=== PATIENT | male | born 1955 | race Two or more races ===

== ENCOUNTER 2021-09-08 06:00 | Day surgery (SDC) | payer OTHER ==
[~2021-09-08 06:00] MED LIST: ALBUTERO IH; SINGULAIR10 MG PO
[2021-09-08] MEDS ORDERED: ULTRAM50 MG PO (15:10)
== END 2021-09-08 16:00 | disposition home or self-care (01) ==
LOC: CIR.AMB 06:00
PROVIDERS: ATTEND Surgery
DX: C20 Malignant neoplasm of rectum (principal); K62.89 Other specified diseases of anus and rectum; K62.5 Hemorrhage of anus and rectum
CPT/HCPCS: 36561; 77001; C1788

== ENCOUNTER → 2024-02-04 10:44 | Outpatient (CLI) | payer OTHER ==
[~2024-02-04 10:44] MED LIST changes: +BREO ELLIPTA 21 EACH IH; +ULTRAM50 MG PO
== END | disposition home or self-care (01) ==
LOC: LAB 10:44 → EKG 10:44
PROVIDERS: ATTEND Surgery
DX: I10 Essential (primary) hypertension (principal); Z01.810 Encounter for preprocedural cardiovascular examination; C20 Malignant neoplasm of rectum; K62.89 Other specified diseases of anus and rectum; K62.5 Hemorrhage of anus and rectum; R59.0 Localized enlarged lymph nodes

== ENCOUNTER 2024-02-11 12:00 | Inpatient (IN) | payer OTHER ==
[~2024-02-11] VITALS: Ht 165.1 cm; Wt 54.4 kg
[2024-02-15] MEDS ORDERED: CEFTRIAXONE SODIUM 2,000 MG VIAL IV ONE (08:30)
[2024-02-15] MEDS ORDERED: METRONIDAZOLE/SODIUM CHLORIDE 500 MG/100 ML PIGGYBACK IV ONE (08:30)
[2024-02-15] MEDS ORDERED: OxyCODONE HCL 5 MG TABLET (ROXICODONE) PO PRN (10:45)
[2024-02-15] MEDS ORDERED: ONDANSETRON HCL 2 MG/ML VIAL IV PRN (10:45)
[2024-02-15] MEDS ORDERED: RINGERS SOLUTION,LACTATED 1,000 ML IV SCH (10:45)
[2024-02-15] MEDS ORDERED: MORPHINE SULFATE 4 MG/ML CARTRIDGE IV PRN (10:45)
[2024-02-15] MEDS ORDERED: SUGAMMADEX SODIUM 200 MG/2 ML VIAL IV ONE (11:15)
[2024-02-15] MEDS ORDERED: MORPHINE SULFATE 4 MG/ML VIAL IV ONE ×2 (11:50→12:20)
[2024-02-15] MEDS ORDERED: ACETAMINOPHEN 500 MG GEL..CAP PO SCH (12:00)
[2024-02-15] MEDS ORDERED: METRONIDAZOLE/SODIUM CHLORIDE 500 MG/100 ML PIGGYBACK IV SCH (13:00)
[2024-02-15 16:19] VITALS: BP 134/63; O2SAT 95
[2024-02-15] MEDS ORDERED: LACTOBACILLUS ACIDOPHILUS 1 CAP CAP PO SCH (17:00)
[2024-02-15] MEDS ORDERED: GABAPENTIN 300 MG CAPSULE PO SCH (17:00)
[2024-02-15] MEDS ORDERED: HYOSCYAMINE SULFATE 0.125 MG TAB.SUBL SL SCH (17:00)
[2024-02-15] MEDS ORDERED: CIPROFLOXACIN IN 5 % DEXTROSE 400 MG/200 ML PIGGYBAG IV SCH (17:00)
[2024-02-15] MEDS ORDERED: TAMSULOSIN HCL 0.4 MG CAP PO SCH (17:00)
[2024-02-15] MEDS ORDERED: ALBUTEROL SULFATE 3 ML/2.5 MG AMPUL.NEB IH SCH (18:36)
[2024-02-15] MEDS ORDERED: FAMOTIDINE/PF 20 MG/2 ML VIAL IV PUSH SCH (21:00)
[2024-02-16 01:18] VITALS: BP 141/67; O2SAT 99
[2024-02-16 08:00] VITALS: BP 81/50; BP 84/44; O2SAT 97; O2SAT 98
[2024-02-16 09:21] LABS: HEMATOCRIT 32.5 % (39.0-48.0); HEMOGLOBIN 10.9 g/dL (13-16.00); MEAN CELL VOLUME 81.7 fL (80.0-100.00); MEAN CORPUSCULAR HEMOGLOBIN 27.5 pg (27.00-32.0); MEAN CORPUSCULAR HGB CONC 33.7 g/dl (32.0-36.0); PLATELET COUNT 291 K/uL (150-450); RED BLOOD COUNT 3.98 M/uL (4.00-6.00); RED CELL DISTRIBUTION WIDTH 14.7 % (11.5-14.5)
[2024-02-16 09:51] LABS: ALBUMIN 2.3 gm/dL (3.4-5.0); CREATININE SERUM 0.93 mg/dL (0.70-1.30); GFR 80.56; MAGNESIUM 1.7 mg/dL (1.8-2.4); PHOSPHOROUS 3.1 mg/dL (2.5-4.9); POTASSIUM 4.95 mEq/L (3.5-5.1)
[2024-02-16 10:00] VITALS: BP 84/44; O2SAT 98
[2024-02-16 11:00] VITALS: BP 106/54; O2SAT 98
[2024-02-16] MEDS ORDERED: DEXTROSE 50 % IN WATER 0.5 G/ML DISP.SYRIN IV PRN (14:00)
[2024-02-16] MEDS ORDERED: INSULIN LISPRO 1,000 UNIT/10 ML UNITS SUBCUTANEO PRN (14:00)
[2024-02-16] MEDS ORDERED: MAGNESIUM SULFATE IN WATER 50 ML IV NR (16:00)
[2024-02-16] MEDS ORDERED: SOD FERRIC GLUC COMPLX/SUCROSE 62.5 MG in 0.9 % SODIUM CHLORIDE 50 ML IV SCH (17:00)
[2024-02-16] MEDS ORDERED: ENOXAPARIN SODIUM 40 MG/0.4 ML SYRINGE SUBCUTANEO SCH (17:00)
[2024-02-16 19:02] VITALS: BP 114/58; O2SAT 95
[2024-02-17 00:55] VITALS: BP 91/54; O2SAT 96
[2024-02-17 08:00] VITALS: BP 116/67; O2SAT 95
[2024-02-17] MEDS ORDERED: ENOXAPARIN SODIUM 40 MG/0.4 ML SYRINGE SUBCUTANEO SCH (09:00)
[2024-02-17 09:21] LABS: HEMATOCRIT 31.7 % (39.0-48.0); HEMOGLOBIN 10.6 g/dL (13-16.00); MEAN CELL VOLUME 81.2 fL (80.0-100.00); MEAN CORPUSCULAR HGB CONC 33.3 g/dl (32.0-36.0); PLATELET COUNT 274 K/uL (150-450); RED BLOOD COUNT 3.91 M/uL (4.00-6.00); RED CELL DISTRIBUTION WIDTH 14.8 % (11.5-14.5)
[2024-02-17 12:00] VITALS: BP 100/62; O2SAT 95
[2024-02-17 16:00] VITALS: BP 137/68; O2SAT 100
[2024-02-18 00:51] VITALS: BP 134/56; O2SAT 97
[2024-02-18 08:35] VITALS: BP 163/78; O2SAT 95
[2024-02-18] MEDS ORDERED: PIPERACILLIN/TAZOBACTAM SODIUM 3.375 GM in 0.9 % SODIUM CHLORIDE 100 ML IV SCH (12:00)
[2024-02-18 12:44] LABS: HEMATOCRIT 35.3 % (39.0-48.0); HEMOGLOBIN 11.3 g/dL (13-16.00); MEAN CELL VOLUME 82.2 fL (80.0-100.00); MEAN CORPUSCULAR HEMOGLOBIN 26.3 pg (27.00-32.0); PLATELET COUNT 328 K/uL (150-450); RED BLOOD COUNT 4.29 M/uL (4.00-6.00); RED CELL DISTRIBUTION WIDTH 14.6 % (11.5-14.5)
[2024-02-18 13:40] LABS: ALBUMIN 2.4 gm/dL (3.4-5.0); BILIRUBIN TOTAL 0.47 mg/dL (0.3-1.2); CALCIUM 8.6 mg/dL (8.5-10.1); CREATININE SERUM 0.85 mg/dL (0.70-1.30); GFR 89.37; GLOBULINA 3.5 G/DL (2.4-3.5); MAGNESIUM 1.9 mg/dL (1.8-2.4); POTASSIUM 4.22 mEq/L (3.5-5.1); TOTAL PROTEIN 5.9 gm/dL (6.4-8.2)
[2024-02-18 16:00] VITALS: BP 152/72; O2SAT 97
[2024-02-19] VITALS: BP 127/83; O2SAT 96
[2024-02-19 09:38] VITALS: BP 135/65; O2SAT 97
[2024-02-19 17:03] VITALS: BP 121/79; O2SAT 96
[2024-02-20] VITALS: BP 122/69; O2SAT 97
[2024-02-20 06:26] LABS: HEMATOCRIT 32.3 % (39.0-48.0); HEMOGLOBIN 10.6 g/dL (13-16.00); MEAN CELL VOLUME 81.5 fL (80.0-100.00); MEAN CORPUSCULAR HEMOGLOBIN 26.6 pg (27.00-32.0); MEAN CORPUSCULAR HGB CONC 32.7 g/dl (32.0-36.0); PLATELET COUNT 374 K/uL (150-450); RED BLOOD COUNT 3.97 M/uL (4.00-6.00); RED CELL DISTRIBUTION WIDTH 14.8 % (11.5-14.5)
[2024-02-20 07:01] LABS: ALBUMIN 2.1 gm/dL (3.4-5.0); BILIRUBIN TOTAL 0.42 mg/dL (0.3-1.2); CALCIUM 8.3 mg/dL (8.5-10.1); CREATININE SERUM 0.63 mg/dL (0.70-1.30); GFR 126.27; GLOBULINA 3.2 G/DL (2.4-3.5); POTASSIUM 3.77 mEq/L (3.5-5.1); TOTAL PROTEIN 5.3 gm/dL (6.4-8.2)
[2024-02-20 08:00] VITALS: BP 123/72; O2SAT 95
[2024-02-20 16:00] VITALS: BP 126/59; O2SAT 95
[2024-02-21] VITALS: BP 118/63; O2SAT 95
[2024-02-21 09:00] VITALS: BP 133/61; O2SAT 98
[2024-02-21 16:33] VITALS: BP 129/71; O2SAT 99
[2024-02-22 00:15] VITALS: BP 137/69; BP 142/67; O2SAT 99
[2024-02-22] MEDS ORDERED: KETOROLAC TROMETHAMINE 30 MG VIAL IV ONE (09:00)
[2024-02-22] MEDS ORDERED: ENOXAPARIN SODIUM 40 MG/0.4 ML SYRINGE SUBCUTANEO SCH (17:00)
[2024-02-22 17:04] VITALS: BP 130/68; O2SAT 99
[2024-02-22] MEDS ORDERED: APIXABAN 5 MG TABLET PO SCH (21:00)
[2024-02-23 01:37] VITALS: BP 147/71; O2SAT 98
[2024-02-23 08:00] VITALS: BP 136/90; O2SAT 97
[2024-02-23 16:58] VITALS: BP 135/82; O2SAT 97
[2024-02-24 00:48] VITALS: BP 127/65; O2SAT 96
[2024-02-24] MEDS ORDERED: METRONIDAZOLE/SODIUM CHLORIDE 100 ML IV SCH (01:00)
[2024-02-24 08:00] VITALS: BP 124/73; O2SAT 97
[2024-02-24 08:00] LABS: HEMATOCRIT 31.7 % (39.0-48.0); HEMOGLOBIN 10.5 g/dL (13-16.00); MEAN CELL VOLUME 81.7 fL (80.0-100.00); MEAN CORPUSCULAR HEMOGLOBIN 27.2 pg (27.00-32.0); MEAN CORPUSCULAR HGB CONC 33.2 g/dl (32.0-36.0); PLATELET COUNT 438 K/uL (150-450); RED BLOOD COUNT 3.88 M/uL (4.00-6.00); RED CELL DISTRIBUTION WIDTH 15.3 % (11.5-14.5)
[2024-02-24 08:23] LABS: ALBUMIN 1.9 gm/dL (3.4-5.0); BILIRUBIN TOTAL 0.4 mg/dL (0.3-1.2); CREATININE SERUM 0.54 mg/dL (0.70-1.30); GFR 150.86; GLOBULINA 2.9 G/DL (2.4-3.5); MAGNESIUM 1.6 mg/dL (1.8-2.4); PHOSPHOROUS 2.6 mg/dL (2.5-4.9); POTASSIUM 3.3 mEq/L (3.5-5.1); TOTAL PROTEIN 4.8 gm/dL (6.4-8.2)
[2024-02-24] MEDS ORDERED: MAGNESIUM SULFATE IN WATER 4 GM/100 ML PIGGYBACK IV STA (09:24)
[2024-02-24] MEDS ORDERED: POTASSIUM CHLORIDE IN WATER 100 ML IV NR (09:30)
[2024-02-24] MEDS ORDERED: DEXTROSE 5 % IN WATER 1,000 ML IV SCH (09:30)
[2024-02-24] MEDS ORDERED: CEFTRIAXONE SODIUM 2,000 MG VIAL IV NR (10:30)
[2024-02-24 16:00] VITALS: BP 139/80; O2SAT 97
[2024-02-25 00:28] VITALS: BP 129/68; O2SAT 98
[2024-02-25 08:00] VITALS: BP 108/68; O2SAT 95
[2024-02-25 08:19] LABS: CALCIUM 8.1 mg/dL (8.5-10.1); CREATININE SERUM 0.6 mg/dL (0.70-1.30); GFR 133.59; POTASSIUM 3.27 mEq/L (3.5-5.1)
[2024-02-25] MEDS ORDERED: CEFTRIAXONE SODIUM 2,000 MG VIAL IV SCH (09:00)
[2024-02-25] MEDS ORDERED: POTASSIUM BICARBONATE/CIT AC 25 MEQ TABLET.EFF PO ONE (09:45)
[2024-02-25] MEDS ORDERED: INTESTINEX680 M1 PO (10:00)
[2024-02-25] MEDS ORDERED: ELIQUIS5 MG PO (10:00)
[2024-02-25] MEDS ORDERED: HYOSCYAMINE0.125 M1 SL (10:01)
== END 2024-02-25 11:17 | disposition home or self-care (01) | DRG 330 ==
LOC: O/R 02-15 05:30 → SURH 02-15 05:30
PROVIDERS: Internal Medicine; Surgery; ADMIT Surgery; ATTEND Surgery
PROC: 0DTP4ZZ Resection of Rectum, Percutaneous Endoscopic Approach (ICD-10-PCS; 2024-02-15)
PROC: 0DBQ4ZZ Excision of Anus, Percutaneous Endoscopic Approach (ICD-10-PCS; 2024-02-15)
PROC: 0D1M4Z4 Bypass Descending Colon to Cutaneous, Percutaneous Endoscopic Approach (ICD-10-PCS; 2024-02-15)
PROC: 07BB4ZZ Excision of Mesenteric Lymphatic, Percutaneous Endoscopic Approach (ICD-10-PCS; 2024-02-15)
PROC: 07BC4ZZ Excision of Pelvis Lymphatic, Percutaneous Endoscopic Approach (ICD-10-PCS; 2024-02-15)
PROC: 0DTN4ZZ Resection of Sigmoid Colon, Percutaneous Endoscopic Approach (ICD-10-PCS; principal; 2024-02-15 10:30)
PROC: 0D9670Z Drainage of Stomach with Drainage Device, Via Natural or Artificial Opening (ICD-10-PCS; 2024-02-19)
PROC: B54NZZZ Ultrasonography of Left Upper Extremity Veins (ICD-10-PCS; 2024-02-21)
DX: C20 Malignant neoplasm of rectum (principal); E87.0 Hyperosmolality and hypernatremia; K56.7 Ileus, unspecified; K91.89 Other postprocedural complications and disorders of digestive system; T85.598A Other mechanical complication of other gastrointestinal prosthetic devices, implants and grafts, initial encounter; K62.5 Hemorrhage of anus and rectum; K56.609 Unspecified intestinal obstruction, unspecified as to partial versus complete obstruction; I80.8 Phlebitis and thrombophlebitis of other sites; D64.89 Other specified anemias; E87.6 Hypokalemia; E83.42 Hypomagnesemia; E88.09 Other disorders of plasma-protein metabolism, not elsewhere classified; R42 Dizziness and giddiness; R59.0 Localized enlarged lymph nodes; K59.09 Other constipation; Z87.891 Personal history of nicotine dependence

== ENCOUNTER 2024-03-25 18:30 | Inpatient (IN) | payer OTHER ==
[~2024-03-25] VITALS: Ht 165.1 cm; Wt 47.6 kg
[~2024-03-25 18:30] MED LIST changes: +ELIQUIS5 MG PO; +HYOSCYAMINE0.125 M1 SL; +INTESTINEX680 M1 PO
[2024-03-25] MEDS ORDERED: PROBIOTIC & AC1 EACH PO (18:38)
[2024-03-25 20:06] LABS: HEMATOCRIT 40.5 % (39.0-48.0); HEMOGLOBIN 13.5 g/dL (13-16.00); MEAN CELL VOLUME 78.6 fL (80.0-100.00); MEAN CORPUSCULAR HEMOGLOBIN 26.1 pg (27.00-32.0); MEAN CORPUSCULAR HGB CONC 33.2 g/dl (32.0-36.0); PLATELET COUNT 599 K/uL (150-450); RED BLOOD COUNT 5.16 M/uL (4.00-6.00); RED CELL DISTRIBUTION WIDTH 16.6 % (11.5-14.5)
[2024-03-25 20:07] LABS: PH,URINE 5.5 (5.0-8.0); URINE APPEARANCE Clear; URINE BILIRRUBIN Small (NEGATIVE); URINE BLOOD Negative; URINE COLOR Dark Yellow; URINE GLUCOSE Negative (NEGATIVE); URINE KETONE 15 (NEGATIVE); URINE LEUKOCYTE Trace; URINE NITRATE Negative; URINE PROTEIN Trace (NEGATIVE)
[2024-03-25 20:17] LABS: URINE BACTERIA 13.4 uL (0.0-1933); URINE CAST 7.51 uL (0.0-1.40); URINE EPITHELIAL CELLS 7.4 uL (0.0-38.8); URINE WBC 5.2 uL (0.0-23.2)
[2024-03-25 20:22] LABS: ALBUMIN 3.3 gm/dL (3.4-5.0); BILIRUBIN TOTAL 0.62 mg/dL (0.3-1.2); CALCIUM 9.9 mg/dL (8.5-10.1); CREATININE SERUM 0.75 mg/dL (0.70-1.30); GFR 102.96; GLOBULINA 5.7 G/DL (2.4-3.5); POTASSIUM 4.54 mEq/L (3.5-5.1)
[2024-03-25 20:28] LABS: URINE CRYSTALS FEW /HPF
[2024-03-25] MEDS ORDERED: 0.9 % SODIUM CHLORIDE 1,000 ML IV SCH (22:00)
[2024-03-26] MEDS ORDERED: MEPERIDINE HCL/PF 50 MG/ML VIAL IM STA (03:21)
[2024-03-26] MEDS ORDERED: PROMETHAZINE HCL 25 MG/ML AMPUL IM STA (03:21)
[2024-03-26] MEDS ORDERED: PROMETHAZINE HCL 25 MG/ML AMPUL ONE (03:51)
[2024-03-26] MEDS ORDERED: 0.9 % SODIUM CHLORIDE 1,000 ML IV SCH (18:00)
[2024-03-26] MEDS ORDERED: ACETAMINOPHEN 325 MG TABLET PO PRN (18:15)
[2024-03-26] MEDS ORDERED: ONDANSETRON HCL 4 MG in 0.9 % SODIUM CHLORIDE 50 ML IV PRN (18:15)
[2024-03-26] MEDS ORDERED: MEPERIDINE HCL/PF 25 MG/ML VIAL IM PRN (18:15)
[2024-03-26] MEDS ORDERED: hydrALAZINE HCL 20 MG VIAL IV PRN (18:15)
[2024-03-26] MEDS ORDERED: PROMETHAZINE HCL 25 MG/ML AMPUL IM PRN (18:15)
[2024-03-26 21:00] VITALS: BP 152/94; O2SAT 95
[2024-03-26] MEDS ORDERED: CIPROFLOXACIN IN 5 % DEXTROSE 200 ML IV SCH (21:00)
[2024-03-26] MEDS ORDERED: PANTOPRAZOLE SODIUM 40 MG/VIAL VIAL IV SCH (21:00)
[2024-03-27] MEDS ORDERED: METRONIDAZOLE/SODIUM CHLORIDE 100 ML IV SCH (01:00)
[2024-03-27 01:48] VITALS: BP 129/84; O2SAT 96
[2024-03-27 06:47] LABS: HEMATOCRIT 37.2 % (39.0-48.0); HEMOGLOBIN 12.4 g/dL (13-16.00); MEAN CELL VOLUME 78.3 fL (80.0-100.00); MEAN CORPUSCULAR HEMOGLOBIN 26.1 pg (27.00-32.0); MEAN CORPUSCULAR HGB CONC 33.3 g/dl (32.0-36.0); PLATELET COUNT 525 K/uL (150-450); RED BLOOD COUNT 4.75 M/uL (4.00-6.00); RED CELL DISTRIBUTION WIDTH 16.7 % (11.5-14.5)
[2024-03-27 07:03] LABS: INR 1.21; PARTIAL THROMBOPLASTIN TIME 31.7 SECONDS (22.0-34.0)
[2024-03-27 07:38] LABS: ALBUMIN 2.6 gm/dL (3.4-5.0); BILIRUBIN TOTAL 0.59 mg/dL (0.3-1.2); CALCIUM 8.8 mg/dL (8.5-10.1); CREATININE SERUM 0.54 mg/dL (0.70-1.30); GFR 150.42; GLOBULINA 3.7 G/DL (2.4-3.5); POTASSIUM 4.8 mEq/L (3.5-5.1); TOTAL PROTEIN 6.3 gm/dL (6.4-8.2)
[2024-03-27 07:42] LABS: C-REACTIVE PROTEIN 4.54 MG/DL (0.00-0.29)
[2024-03-27] MEDS ORDERED: ENOXAPARIN SODIUM 30 MG/0.3 ML SYRINGE SUBCUTANEO SCH (09:00)
[2024-03-27] MEDS ORDERED: APIXABAN 5 MG TABLET PO SCH (09:00)
[2024-03-27 09:46] VITALS: BP 152/79; O2SAT 98
[2024-03-27 16:00] VITALS: BP 143/98; O2SAT 99
[2024-03-27] MEDS ORDERED: POLYETHYLENE GLYCOL 3350 17 GM BLIST.PACK PO SCH (17:00)
[2024-03-28] VITALS: BP 134/75; O2SAT 96
[2024-03-28 08:00] VITALS: BP 147/73; O2SAT 97
[2024-03-28 16:20] VITALS: BP 155/92; O2SAT 94
[2024-03-29 00:20] VITALS: BP 117/78; O2SAT 96
[2024-03-29] MEDS ORDERED: PEPCID AC20 MG PO (09:34)
[2024-03-29] MEDS ORDERED: PROBIOTIC & AC1 EACH PO (09:34)
[2024-03-29] MEDS ORDERED: DICY20TA PO (09:35)
== END 2024-03-29 11:15 | disposition home or self-care (01) | DRG 389 ==
LOC: ER 18:33 → SURH 03-26 18:17
PROVIDERS: Emergency Medicine; General Practice; ADMIT Colon & Rectal Surgery; ATTEND Colon & Rectal Surgery
PROC: BW21ZZZ Computerized Tomography (CT Scan) of Abdomen and Pelvis (ICD-10-PCS; principal; 2024-03-25)
PROC: 0DH58UZ Insertion of Feeding Device into Esophagus, Via Natural or Artificial Opening Endoscopic (ICD-10-PCS; 2024-03-26)
DX: K56.699 Other intestinal obstruction unspecified as to partial versus complete obstruction (principal); C20 Malignant neoplasm of rectum; C78.00 Secondary malignant neoplasm of unspecified lung; R14.0 Abdominal distension (gaseous); Z93.3 Colostomy status

== ENCOUNTER 2024-04-14 23:32 | Inpatient (IN) | payer OTHER ==
[~2024-04-14] VITALS: Ht 165.1 cm; Wt 81.6 kg
[~2024-04-14 23:32] MED LIST changes: +DICY20TA PO; +PEPCID AC20 MG PO; +PROBIOTIC & AC1 EACH PO
[2024-04-15] MEDS ORDERED: METOCLOPRAMIDE HCL 5 MG/ML VIAL IM STA (01:10)
[2024-04-15] MEDS ORDERED: HYOSCYAMINE SULFATE 0.125 MG TAB.SUBL SL STA (01:10)
[2024-04-15] MEDS ORDERED: 0.9 % SODIUM CHLORIDE 1,000 ML IV STA (01:11)
[2024-04-15] MEDS ORDERED: METOCLOPRAMIDE HCL 5 MG/ML VIAL ONE (01:59)
[2024-04-15] MEDS ORDERED: HYOSCYAMINE SULFATE 0.125 MG TAB.SUBL ONE (01:59)
[2024-04-15 02:24] LABS: HEMATOCRIT 39.6 % (39.0-48.0); HEMOGLOBIN 13.2 g/dL (13-16.00); MEAN CELL VOLUME 77.8 fL (80.0-100.00); MEAN CORPUSCULAR HGB CONC 33.4 g/dl (32.0-36.0); PLATELET COUNT 367 K/uL (150-450); RED BLOOD COUNT 5.09 M/uL (4.00-6.00); RED CELL DISTRIBUTION WIDTH 18.6 % (11.5-14.5)
[2024-04-15 02:43] LABS: INR 1.18; PARTIAL THROMBOPLASTIN TIME 30.3 SECONDS (22.0-34.0); PROTHROMBIN TIME 12.7 SECONDS (9.0-11.5)
[2024-04-15 02:49] LABS: ALBUMIN 3.1 gm/dL (3.4-5.0); BILIRUBIN TOTAL 0.61 mg/dL (0.3-1.2); CALCIUM 9.2 mg/dL (8.5-10.1); CREATININE SERUM 0.73 mg/dL (0.70-1.30); GFR 106.22; GLOBULINA 4.2 G/DL (2.4-3.5); POTASSIUM 4.63 mEq/L (3.5-5.1); TOTAL PROTEIN 7.3 gm/dL (6.4-8.2)
[2024-04-15] MEDS ORDERED: RINGERS SOLUTION,LACTATED 1,000 ML IV SCH (07:30)
[2024-04-15] MEDS ORDERED: ENOXAPARIN SODIUM 60 MG/0.6 ML SYRINGE SUBCUTANEO ONE (07:49)
[2024-04-15] MEDS ORDERED: PIPERACILLIN/TAZOBACTAM SODIUM 3.375 GM VIAL IV ONE (07:50)
[2024-04-15] MEDS ORDERED: PIPERACILLIN/TAZOBACTAM SODIUM 3.375 GM in 0.9 % SODIUM CHLORIDE 100 ML IV SCH (08:00)
[2024-04-15] MEDS ORDERED: ENOXAPARIN SODIUM 60 MG/0.6 ML SYRINGE SUBCUTANEO SCH (09:00)
[2024-04-15 11:40] VITALS: BP 102/65; O2SAT 92
[2024-04-15 19:12] VITALS: BP 106/63; O2SAT 92
[2024-04-16 00:09] VITALS: BP 106/58; O2SAT 98
[2024-04-16 10:00] VITALS: BP 112/55; O2SAT 98
[2024-04-16 11:41] LABS: HEMATOCRIT 41.2 % (39.0-48.0); HEMOGLOBIN 13.4 g/dL (13-16.00); MEAN CELL VOLUME 78.5 fL (80.0-100.00); MEAN CORPUSCULAR HEMOGLOBIN 25.6 pg (27.00-32.0); MEAN CORPUSCULAR HGB CONC 32.6 g/dl (32.0-36.0); PLATELET COUNT 315 K/uL (150-450); RED BLOOD COUNT 5.25 M/uL (4.00-6.00); RED CELL DISTRIBUTION WIDTH 19.4 % (11.5-14.5)
[2024-04-16 11:47] LABS: ERYTHROCYTE SEDIMENTATION RATE 39 mm/hr
[2024-04-16 12:01] LABS: INR 1.23; PARTIAL THROMBOPLASTIN TIME 32.5 SECONDS (22.0-34.0); PROTHROMBIN TIME 13.2 SECONDS (9.0-11.5)
[2024-04-16 12:11] LABS: ALBUMIN 2.7 gm/dL (3.4-5.0); BILIRUBIN TOTAL 0.81 mg/dL (0.3-1.2); BILIRUBIN,CONJUGATED 0.36 mg/dL (0.0-0.2); BILIRUBIN,UNCONJUGATED 0.45 mg/dL (0.0-0.6); CHOL HDL RATIO 2.8 (0-5.0); CREATININE SERUM 0.61 mg/dL (0.70-1.30); GFR 130.68; GLOBULINA 3.8 G/DL (2.4-3.5); POTASSIUM 4.05 mEq/L (3.5-5.1); TOTAL PROTEIN 6.5 gm/dL (6.4-8.2)
[2024-04-16 12:12] LABS: C-REACTIVE PROTEIN 14.1 MG/DL (0.00-0.29)
[2024-04-16 12:36] LABS: ob NEGATIVE (NEGATIVE)
[2024-04-16 16:00] VITALS: BP 108/56; O2SAT 95
[2024-04-17 00:21] VITALS: BP 116/63; O2SAT 100
[2024-04-17 08:00] VITALS: BP 104/65; O2SAT 93
[2024-04-17 13:32] LABS: HEMOGLOBIN 12.1 g/dL (13-16.00); MEAN CELL VOLUME 79.3 fL (80.0-100.00); MEAN CORPUSCULAR HEMOGLOBIN 25.9 pg (27.00-32.0); MEAN CORPUSCULAR HGB CONC 32.7 g/dl (32.0-36.0); PLATELET COUNT 282 K/uL (150-450); RED BLOOD COUNT 4.66 M/uL (4.00-6.00); RED CELL DISTRIBUTION WIDTH 19.4 % (11.5-14.5)
[2024-04-17 13:50] LABS: ALBUMIN 2.2 gm/dL (3.4-5.0); BILIRUBIN TOTAL 0.72 mg/dL (0.3-1.2); CALCIUM 8.4 mg/dL (8.5-10.1); CREATININE SERUM 0.54 mg/dL (0.70-1.30); GFR 150.42; GLOBULINA 3.4 G/DL (2.4-3.5); MAGNESIUM 1.9 mg/dL (1.8-2.4); POTASSIUM 3.8 mEq/L (3.5-5.1); TOTAL PROTEIN 5.6 gm/dL (6.4-8.2)
[2024-04-17 13:56] LABS: CALCIUM 8.4 mg/dL (8.5-10.1); CHOL HDL RATIO 3.4 (0-5.0); CREATININE SERUM 0.48 mg/dL (0.70-1.30); GFR 172.31; POTASSIUM 3.78 mEq/L (3.5-5.1)
[2024-04-17 16:30] VITALS: BP 130/80; O2SAT 98
[2024-04-17] MEDS ORDERED: AMINO ACIDS 4.25%/DEXTROSE 10% 1,000 ML CENTRAL SCH (17:00)
[2024-04-18 04:06] VITALS: BP 103/75; O2SAT 97
[2024-04-18 09:34] VITALS: BP 118/71; O2SAT 99
[2024-04-18 16:11] VITALS: BP 122/73; O2SAT 97
[2024-04-18] MEDS ORDERED: HYOSCYAMINE SULFATE 0.125 MG TAB.SUBL SL SCH (17:00)
[2024-04-18] MEDS ORDERED: TAMSULOSIN HCL 0.4 MG CAP PO SCH (17:00)
[2024-04-19 00:07] VITALS: BP 124/74; O2SAT 100
[2024-04-19 08:50] VITALS: BP 116/69; O2SAT 98
[2024-04-19 16:17] VITALS: BP 95/66; O2SAT 95
[2024-04-20 01:09] VITALS: BP 109/70; O2SAT 98
[2024-04-20 08:00] VITALS: BP 114/67; O2SAT 100
[2024-04-20 11:41] LABS: HEMATOCRIT 36.9 % (39.0-48.0); HEMOGLOBIN 12.2 g/dL (13-16.00); MEAN CELL VOLUME 77.6 fL (80.0-100.00); MEAN CORPUSCULAR HEMOGLOBIN 25.8 pg (27.00-32.0); MEAN CORPUSCULAR HGB CONC 33.2 g/dl (32.0-36.0); PLATELET COUNT 243 K/uL (150-450); RED BLOOD COUNT 4.75 M/uL (4.00-6.00); RED CELL DISTRIBUTION WIDTH 19.3 % (11.5-14.5)
[2024-04-20 12:27] LABS: BILIRUBIN TOTAL 0.45 mg/dL (0.3-1.2); CALCIUM 7.9 mg/dL (8.5-10.1); CREATININE SERUM 0.37 mg/dL (0.70-1.30); GFR 232.69; GLOBULINA 3.3 G/DL (2.4-3.5); TOTAL PROTEIN 5.3 gm/dL (6.4-8.2)
[2024-04-20] MEDS ORDERED: POTASSIUM CHLORIDE IN WATER 100 ML IV NR (16:00)
[2024-04-20 16:42] VITALS: BP 103/78; O2SAT 98
[2024-04-20] MEDS ORDERED: POTASSIUM PHOS,M-BASIC-D-BASIC 3 MM/ML VIAL IV SCH (20:00)
[2024-04-20] MEDS ORDERED: PIPERACILLIN/TAZOBACTAM SODIUM 3.375 GM VIAL IV ONE (22:51)
[2024-04-20 23:54] VITALS: BP 118/69; O2SAT 100
[2024-04-21 07:51] LABS: HEMATOCRIT 35.2 % (39.0-48.0); HEMOGLOBIN 11.6 g/dL (13-16.00); MEAN CELL VOLUME 78.6 fL (80.0-100.00); MEAN CORPUSCULAR HGB CONC 33.1 g/dl (32.0-36.0); PLATELET COUNT 227 K/uL (150-450); RED BLOOD COUNT 4.47 M/uL (4.00-6.00); RED CELL DISTRIBUTION WIDTH 19.3 % (11.5-14.5)
[2024-04-21 08:20] VITALS: BP 120/71; O2SAT 100
[2024-04-21 08:36] LABS: BILIRUBIN TOTAL 0.34 mg/dL (0.3-1.2); BILIRUBIN,CONJUGATED 0.17 mg/dL (0.0-0.2); BILIRUBIN,UNCONJUGATED 0.17 mg/dL (0.0-0.6); CALCIUM 8.2 mg/dL (8.5-10.1); CHOL HDL RATIO 3.9 (0-5.0); CREATININE SERUM 0.38 mg/dL (0.70-1.30); GFR 225.64; GLOBULINA 3.2 G/DL (2.4-3.5); MAGNESIUM 1.5 mg/dL (1.8-2.4); POTASSIUM 4.11 mEq/L (3.5-5.1); TOTAL PROTEIN 5.2 gm/dL (6.4-8.2)
[2024-04-21 09:40] LABS: INR 1.07; PROTHROMBIN TIME 11.6 SECONDS (9.0-11.5)
[2024-04-21 15:53] VITALS: BP 127/70; O2SAT 95
[2024-04-22] VITALS: BP 100/61; BP 118/73; O2SAT 95
[2024-04-22] MEDS ORDERED: DIATRIZOATE MEGLUMINE, SODIUM 30 ML BOTTLE PO SCH (06:00)
[2024-04-22 08:10] VITALS: BP 128/83; O2SAT 99
[2024-04-22 16:28] VITALS: BP 90/69; O2SAT 94
[2024-04-22] MEDS ORDERED: ALBUMIN HUMAN 0.25GM/ML (50ML) VIAL IV SCH (21:00)
[2024-04-23 05:15] VITALS: BP 123/76; O2SAT 98
[2024-04-23 09:09] VITALS: BP 118/74; O2SAT 97
[2024-04-23 16:00] VITALS: BP 112/75; O2SAT 100
[2024-04-24 01:50] VITALS: BP 116/75; O2SAT 98
[2024-04-24 19:00] VITALS: BP 102/74; O2SAT 100
[2024-04-25 03:51] VITALS: BP 107/71; O2SAT 96
[2024-04-25] MEDS ORDERED: MORPHINE SULFATE 4 MG/ML CARTRIDGE IV PRN (12:45)
[2024-04-25] MEDS ORDERED: ONDANSETRON HCL 2 MG/ML VIAL IV PRN (12:45)
[2024-04-25] MEDS ORDERED: MORPHINE SULFATE 4 MG/ML VIAL IV ONE (13:25)
[2024-04-25] MEDS ORDERED: MORPHINE SULFATE 2 MG/ML CARTRIDGE IV ONE (13:55)
[2024-04-25 15:41] LABS: ALBUMIN 2.4 gm/dL (3.4-5.0)
[2024-04-25 15:44] LABS: GFR 365.81
[2024-04-25 15:49] LABS: PHOSPHOROUS 1.4 mg/dL (2.5-4.9)
[2024-04-25 15:50] LABS: POTASSIUM 2.95 mEq/L (3.5-5.1)
[2024-04-25 17:00] VITALS: BP 98/59; O2SAT 96
[2024-04-25] MEDS ORDERED: POTASSIUM PHOS,M-BASIC-D-BASIC 45mM/15ml VIAL IV NR ×2 (17:00→22:30)
[2024-04-25 19:24] LABS: CREATININE SERUM 0.25 mg/dL (0.70-1.30)
[2024-04-25] MEDS ORDERED: FAMOTIDINE/PF 20 MG/2 ML VIAL IV PUSH SCH (21:00)
[2024-04-26 01:29] VITALS: BP 113/76; O2SAT 98
[2024-04-26] MEDS ORDERED: POTASSIUM CHLORIDE IN WATER 40 MEQ/100 ML PIGGYBAG IV NR ×2 (05:00)
[2024-04-26 07:21] LABS: HEMATOCRIT 31.7 % (39.0-48.0); HEMOGLOBIN 10.4 g/dL (13-16.00); MEAN CELL VOLUME 79.2 fL (80.0-100.00); MEAN CORPUSCULAR HEMOGLOBIN 26.1 pg (27.00-32.0); PLATELET COUNT 299 K/uL (150-450); RED CELL DISTRIBUTION WIDTH 19.8 % (11.5-14.5)
[2024-04-26 07:43] LABS: MAGNESIUM 1.7 mg/dL (1.8-2.4); PHOSPHOROUS 2.2 mg/dL (2.5-4.9)
[2024-04-26 08:00] VITALS: BP 120/64; O2SAT 98
[2024-04-26] MEDS ORDERED: MAGNESIUM SULFATE IN WATER 50 ML IV NR (10:30)
[2024-04-26] MEDS ORDERED: POTASSIUM PHOS,M-BASIC-D-BASIC 15 MM in 0.9 % SODIUM CHLORIDE 250 ML IV NR (10:45)
[2024-04-26 16:00] VITALS: BP 121/72; O2SAT 95
[2024-04-26] MEDS ORDERED: ENOXAPARIN SODIUM 40 MG/0.4 ML SYRINGE SUBCUTANEO SCH (17:00)
[2024-04-26 20:12] LABS: CALCIUM 8.1 mg/dL (8.5-10.1); CREATININE SERUM 0.37 mg/dL (0.70-1.30); GFR 232.69; POTASSIUM 4.36 mEq/L (3.5-5.1)
[2024-04-27 02:01] VITALS: BP 108/70; O2SAT 95
[2024-04-27 08:00] VITALS: BP 131/70; O2SAT 95
[2024-04-27] MEDS ORDERED: ENOXAPARIN SODIUM 40 MG/0.4 ML SYRINGE SUBCUTANEO SCH (09:00)
[2024-04-27 16:00] VITALS: BP 119/75; O2SAT 96
[2024-04-28 01:20] VITALS: BP 128/77; O2SAT 94
[2024-04-28 08:00] VITALS: BP 125/71; O2SAT 96
[2024-04-28 08:53] LABS: HEMATOCRIT 27.2 % (39.0-48.0); MEAN CELL VOLUME 78.8 fL (80.0-100.00); MEAN CORPUSCULAR HGB CONC 32.9 g/dl (32.0-36.0); PLATELET COUNT 303 K/uL (150-450); RED BLOOD COUNT 3.46 M/uL (4.00-6.00); RED CELL DISTRIBUTION WIDTH 20.4 % (11.5-14.5)
[2024-04-28 09:14] LABS: INR 1.2; PARTIAL THROMBOPLASTIN TIME 32.5 SECONDS (22.0-34.0); PROTHROMBIN TIME 12.9 SECONDS (9.0-11.5)
[2024-04-28 09:53] LABS: ALBUMIN 2.1 gm/dL (3.4-5.0); BILIRUBIN TOTAL 0.53 mg/dL (0.3-1.2); BILIRUBIN,CONJUGATED 0.22 mg/dL (0.0-0.2); BILIRUBIN,UNCONJUGATED 0.31 mg/dL (0.0-0.6); CALCIUM 8.3 mg/dL (8.5-10.1); CHOL HDL RATIO 5.1 (0-5.0); GFR 320.97; GLOBULINA 3.1 G/DL (2.4-3.5); MAGNESIUM 1.9 mg/dL (1.8-2.4); POTASSIUM 3.74 mEq/L (3.5-5.1); TOTAL PROTEIN 5.2 gm/dL (6.4-8.2)
[2024-04-28 09:57] LABS: CREATININE SERUM 0.28 mg/dL (0.70-1.30)
[2024-04-28 10:05] LABS: UREA CLEARANCE 92.1 ML/MIN
[2024-04-28 10:22] LABS: PHOSPHOROUS 1.3 mg/dL (2.5-4.9)
[2024-04-28] MEDS ORDERED: POTASSIUM PHOS,M-BASIC-D-BASIC 45mM/15ml VIAL IV SCH (12:00)
[2024-04-28 16:00] VITALS: BP 131/77; O2SAT 99
[2024-04-29] VITALS: BP 148/82; O2SAT 97
[2024-04-29 08:00] VITALS: BP 153/753
[2024-04-29] MEDS ORDERED: SOD FERRIC GLUC COMPLX/SUCROSE 62.5 MG in 0.9 % SODIUM CHLORIDE 50 ML IV SCH (09:00)
[2024-04-29] MEDS ORDERED: CYANOCOBALAMIN (VITAMIN B-12) 1,000 MCG/ML VIAL IM SCH (09:00)
[2024-04-29 16:00] VITALS: BP 141/72; O2SAT 98
[2024-04-30 00:52] VITALS: BP 136/67
[2024-04-30 08:00] VITALS: BP 119/66; O2SAT 100
[2024-04-30 12:42] LABS: HEMOGLOBIN 9.2 g/dL (13-16.00); MEAN CELL VOLUME 78.9 fL (80.0-100.00); MEAN CORPUSCULAR HEMOGLOBIN 26.1 pg (27.00-32.0); MEAN CORPUSCULAR HGB CONC 33.1 g/dl (32.0-36.0); PLATELET COUNT 341 K/uL (150-450); RED BLOOD COUNT 3.54 M/uL (4.00-6.00); RED CELL DISTRIBUTION WIDTH 20.8 % (11.5-14.5)
[2024-04-30 13:46] LABS: BILIRUBIN TOTAL 0.4 mg/dL (0.3-1.2); GLOBULINA 2.9 G/DL (2.4-3.5); MAGNESIUM 1.6 mg/dL (1.8-2.4); POTASSIUM 3.3 mEq/L (3.5-5.1); TOTAL PROTEIN 4.9 gm/dL (6.4-8.2)
[2024-04-30 13:49] LABS: GFR 334.71
[2024-04-30 13:50] LABS: CREATININE SERUM 0.27 mg/dL (0.70-1.30); PHOSPHOROUS 1.6 mg/dL (2.5-4.9)
[2024-04-30] MEDS ORDERED: MAGNESIUM SULFATE IN WATER 50 ML IV NR (14:00)
[2024-04-30] MEDS ORDERED: POTASSIUM CHLORIDE IN WATER 100 ML IV NR (14:00)
[2024-04-30] MEDS ORDERED: POTASSIUM PHOS,M-BASIC-D-BASIC 45mM/15ml VIAL IV SCH (18:00)
[2024-05-01 02:00] VITALS: BP 111/74; O2SAT 98
[2024-05-01 08:00] VITALS: BP 128/75; O2SAT 98
[2024-05-01 17:26] VITALS: BP 125/65; O2SAT 99
[2024-05-01 19:40] VITALS: BP 105/61; O2SAT 100
[2024-05-02 01:28] VITALS: BP 137/85; O2SAT 95
[2024-05-02] MEDS ORDERED: FUROsemide 20 MG/2 ML VIAL IV SCH (06:30)
[2024-05-02 08:00] VITALS: BP 134/73; O2SAT 97
[2024-05-02 12:32] LABS: HEMATOCRIT 31.9 % (39.0-48.0); MEAN CORPUSCULAR HEMOGLOBIN 27.1 pg (27.00-32.0); MEAN CORPUSCULAR HGB CONC 34.3 g/dl (32.0-36.0); PLATELET COUNT 362 K/uL (150-450); RED BLOOD COUNT 4.04 M/uL (4.00-6.00); RED CELL DISTRIBUTION WIDTH 20.4 % (11.5-14.5)
[2024-05-02] MEDS ORDERED: OxyCODONE HCL 5 MG TABLET (ROXICODONE) PO PRN (15:15)
[2024-05-02] MEDS ORDERED: MORPHINE SULFATE 4 MG/ML VIAL IV PRN (15:15)
[2024-05-03 00:49] VITALS: BP 132/88; O2SAT 98
[2024-05-03 08:00] VITALS: BP 117/62; O2SAT 95
[2024-05-03 16:22] VITALS: BP 129/84; O2SAT 96
[2024-05-04] VITALS: BP 126/75; O2SAT 98
[2024-05-04 08:17] VITALS: BP 121/60; O2SAT 97
[2024-05-04 16:13] VITALS: BP 114/76; O2SAT 96
[2024-05-05] VITALS: BP 116/68; O2SAT 99
[2024-05-05 07:13] LABS: HEMATOCRIT 30.9 % (39.0-48.0); HEMOGLOBIN 10.7 g/dL (13-16.00); MEAN CELL VOLUME 79.9 fL (80.0-100.00); MEAN CORPUSCULAR HEMOGLOBIN 27.6 pg (27.00-32.0); MEAN CORPUSCULAR HGB CONC 34.6 g/dl (32.0-36.0); PLATELET COUNT 446 K/uL (150-450); RED BLOOD COUNT 3.88 M/uL (4.00-6.00); RED CELL DISTRIBUTION WIDTH 21.4 % (11.5-14.5)
[2024-05-05 07:23] LABS: BILIRUBIN TOTAL 0.45 mg/dL (0.3-1.2); CALCIUM 8.5 mg/dL (8.5-10.1); CREATININE SERUM 0.43 mg/dL (0.70-1.30); GFR 195.64; GLOBULINA 3.4 G/DL (2.4-3.5); MAGNESIUM 1.7 mg/dL (1.8-2.4); PHOSPHOROUS 2.4 mg/dL (2.5-4.9); POTASSIUM 3.89 mEq/L (3.5-5.1); TOTAL PROTEIN 5.4 gm/dL (6.4-8.2)
[2024-05-05] MEDS ORDERED: MAGNESIUM SULFATE IN WATER 50 ML IV NR (09:00)
[2024-05-05 09:23] VITALS: BP 113/64; O2SAT 98
[2024-05-05 16:00] VITALS: BP 113/75; O2SAT 97
[2024-05-06 00:38] VITALS: BP 117/74; O2SAT 98
[2024-05-06 08:00] VITALS: BP 118/73; O2SAT 97
[2024-05-06] MEDS ORDERED: MAGNESIUM SULFATE IN WATER 50 ML IV NR (08:00)
[2024-05-06] MEDS ORDERED: APIXABAN 5 MG TABLET PO SCH (09:00)
== END 2024-05-06 14:54 | disposition home or self-care (01) | DRG 330 ==
LOC: ER 23:34 → SEC-K 04-15 07:46 → SURG 04-15 07:46
PROVIDERS: Internal Medicine; ADMIT Surgery; ATTEND Surgery
PROC: BW21ZZZ Computerized Tomography (CT Scan) of Abdomen and Pelvis (ICD-10-PCS; 2024-04-15)
PROC: B54NZZZ Ultrasonography of Left Upper Extremity Veins (ICD-10-PCS; 2024-04-15)
PROC: B54DZZZ Ultrasonography of Bilateral Lower Extremity Veins (ICD-10-PCS; 2024-04-18)
PROC: BW21YZZ Computerized Tomography (CT Scan) of Abdomen and Pelvis using Other Contrast (ICD-10-PCS; 2024-04-22)
PROC: 0DJD0ZZ Inspection of Lower Intestinal Tract, Open Approach (ICD-10-PCS; 2024-04-25)
PROC: 0DTJ0ZZ Resection of Appendix, Open Approach (ICD-10-PCS; 2024-04-25)
PROC: 0DT80ZZ Resection of Small Intestine, Open Approach (ICD-10-PCS; 2024-04-25)
PROC: 0DBW0ZZ Excision of Peritoneum, Open Approach (ICD-10-PCS; 2024-04-25)
PROC: 0DQ80ZZ Repair Small Intestine, Open Approach (ICD-10-PCS; principal; 2024-04-25 13:00)
PROC: 02HV33Z Insertion of Infusion Device into Superior Vena Cava, Percutaneous Approach (ICD-10-PCS; 2024-05-01)
PROC: 30233N1 Transfusion of Nonautologous Red Blood Cells into Peripheral Vein, Percutaneous Approach (ICD-10-PCS; 2024-05-01)
DX: K56.609 Unspecified intestinal obstruction, unspecified as to partial versus complete obstruction (principal); C20 Malignant neoplasm of rectum; C78.6 Secondary malignant neoplasm of retroperitoneum and peritoneum; R18.8 Other ascites; C78.00 Secondary malignant neoplasm of unspecified lung; C78.4 Secondary malignant neoplasm of small intestine; R14.0 Abdominal distension (gaseous); R59.0 Localized enlarged lymph nodes; D63.0 Anemia in neoplastic disease; I80.8 Phlebitis and thrombophlebitis of other sites

== ENCOUNTER 2024-05-27 10:35 | Outpatient (CLI) | payer OTHER | END 2024-05-27 10:42 | disposition home or self-care (01) | LOC: TOM 10:35 | PROVIDERS: ATTEND Internal Medicine Hematology & Oncology | DX: C20 Malignant neoplasm of rectum (principal); J20.8 Acute bronchitis due to other specified organisms; D68.8 Other specified coagulation defects; R91.1 Solitary pulmonary nodule | CPT/HCPCS: 71270; 74178; Q9965 ==